=== PATIENT | male | born 1995 | race Two or more races ===

== ENCOUNTER 2020-01-24 01:26 | Emergency (ER) | payer OTHER ==
[~2020-01-24] VITALS: Ht 180.3 cm; Wt 75.0 kg
[2020-01-24] MEDS ORDERED: PERTUSS(ACELL),DIPH,TET VAC/PF 0.5 ML VIAL IM ONE (02:30)
[2020-01-24] MEDS ORDERED: POVIDONE-IODINE 10% 15 ML SOLUTION UD TP ONE (02:30)
[2020-01-24] MEDS ORDERED: LIDOCAINE 1% 10 ML VIAL INJ ONE (02:30)
[2020-01-24] MEDS ORDERED: KETOROLAC TROMETHAMINE 60 MG/2 ML VIAL IM ONE (02:30)
[2020-01-24] MEDS ORDERED: BACITRACIN 0.9 GM PACKET OINTMENT TP ONE (04:15)
[2020-01-24] MEDS ORDERED: CEPHALEXIN MONOHYDRATE 500 MG CAPSULE PO ONE (04:15)
[2020-01-24] MEDS ORDERED: NEOMYCIN/BACITRACIN/POLYMYXIN B OINTMENT PACKET TP ONE (04:16)
[2020-01-24 04:24] VITALS: BP 132/68
== END 2020-01-24 04:35 | disposition home or self-care (01) ==
LOC: EMS 01:26
DX: S61.412A Laceration without foreign body of left hand, initial encounter (principal); S81.812A Laceration without foreign body, left lower leg, initial encounter; S21.212A Laceration without foreign body of left back wall of thorax without penetration into thoracic cavity, initial encounter; W22.8XXA Striking against or struck by other objects, initial encounter; Y93.89 Activity, other specified; Y92.89 Other specified places as the place of occurrence of the external cause; Y99.8 Other external cause status
CPT/HCPCS: 12002; 90471; 90715; 96372; 99284; J1885; J3490